=== PATIENT | female | born 1955 | race Caucasian/White ===

== ENCOUNTER 2019-12-29 10:30 | Outpatient (REF) | payer MEDICARE, BC, SELFPAY ==
[2019-12-29 19:35] LABS: HCT 41.5 % (36.0-46.0); HGB 13.6 g/dL (11.2-15.7); MCH 30.4 pg (27.0-33.0); MCHC 32.8 % (32.0-36.0); MCV 92.8 fL (80-95); MPV 12.9 fL (8.0-11.0); Platelet Count 260 10^3/uL (130-400); RBC 4.47 10^6/uL (3.93-5.22); RDW 11.9 % (11.7-14.6); RDW-SD 40.4 fL; WBC 6.08 10^3/uL (4.4-10.8)
[2019-12-29 20:08] LABS: Anion Gap 9.4 mmol/L (3-11); BUN 11 mg/dL (7-18); CO2 26.6 mmol/L (21.0-32.0); CREATININE 0.79 mg/dL (0.55-1.02); Calcium 9.2 mg/dL (8.5-10.1); Calculated LDL 168 mg/dL (<100); Chloride 104 mmol/L (98-107); Cholesterol 260 mg/dL (<200); Glucose 91 mg/dL (74-106); HDL Cholesterol 51 mg/dL (40-60); Potassium 4.4 mmol/L (3.5-5.1); Sodium 140 mmol/L (136-145); TSH (W/Ref FT4) 2.13 uIU/mL (0.36-3.74); Triglyceride 205 mg/dL (<150)
== END 2019-12-29 10:50 ==
LOC: NCHCN 10:30
PROVIDERS: Visit Provider Nurse Practitioner Family
DX: I10 Essential (primary) hypertension (principal); E78.00 Pure hypercholesterolemia, unspecified
CPT/HCPCS: 80048; 80061; 85027; 84443

== ENCOUNTER 2020-03-22 18:36 | Outpatient (REF) | payer MEDICARE, BC, SELFPAY ==
[2020-03-22 19:25] LABS: Calculated LDL 169 mg/dL (<100); Cholesterol 259 mg/dL (<200); HDL Cholesterol 58 mg/dL (40-60); Triglyceride 164 mg/dL (<150)
[2020-03-22 19:54] LABS: Creatine Kinase 190 U/L (26-192)
== END 2020-03-22 18:56 ==
LOC: NCHCN 18:36
PROVIDERS: Visit Provider Nurse Practitioner Family
DX: I10 Essential (primary) hypertension (principal); E78.00 Pure hypercholesterolemia, unspecified; Z15.09 Genetic susceptibility to other malignant neoplasm; Z00.00 Encounter for general adult medical examination without abnormal findings
CPT/HCPCS: 80061; 82550

== ENCOUNTER 2020-11-29 14:38 | Outpatient (REF) | payer MEDICARE, BC, SELFPAY ==
[2020-11-29 19:37] LABS: Calculated LDL 157 mg/dL (<100); Cholesterol 246 mg/dL (<200); HDL Cholesterol 61 mg/dL (40-60); Triglyceride 144 mg/dL (<150)
== END 2020-11-29 14:39 | disposition home or self-care (01) ==
LOC: NCHCN 14:38
PROVIDERS: Visit Provider Nurse Practitioner Family
DX: E78.00 Pure hypercholesterolemia, unspecified (principal)
CPT/HCPCS: 80061

== ENCOUNTER 2021-05-30 18:36 | Outpatient (REF) | payer MEDICARE, BC, SELFPAY ==
[2021-05-30 13:46] LABS: Anion Gap 7.7 mmol/L (3-11); BUN 11 mg/dL (7-18); CO2 29.3 mmol/L (21.0-32.0); CREATININE 0.8 mg/dL (0.55-1.02); Calcium 9.7 mg/dL (8.5-10.1); Calculated LDL 205 mg/dL (<100); Chloride 103 mmol/L (98-107); Cholesterol 300 mg/dL (<200); Glucose 92 mg/dL (74-106); HDL Cholesterol 63 mg/dL (40-60); Potassium 4.3 mmol/L (3.5-5.1); Sodium 140 mmol/L (136-145); Triglyceride 162 mg/dL (<150)
== END 2021-05-30 18:37 | disposition home or self-care (01) ==
LOC: NCHCN 18:36
PROVIDERS: Visit Provider Nurse Practitioner Family
DX: E78.00 Pure hypercholesterolemia, unspecified (principal); I10 Essential (primary) hypertension
CPT/HCPCS: 80048; 80061

== ENCOUNTER 2021-08-21 10:27 | Outpatient (REF) | payer OTHER, MEDICARE, SELFPAY ==
[2021-08-21 12:25] LABS: Calculated LDL 90 mg/dL (<100); Cholesterol 179 mg/dL (<200); HDL Cholesterol 61 mg/dL (40-60); Triglyceride 140 mg/dL (<150)
== END 2021-08-21 10:28 | disposition home or self-care (01) ==
LOC: NCHCN 10:27
PROVIDERS: Visit Provider Nurse Practitioner Family
DX: E78.00 Pure hypercholesterolemia, unspecified (principal)
CPT/HCPCS: 80061

== ENCOUNTER 2021-12-19 18:29 | Outpatient (REF) | payer OTHER, SELFPAY ==
[2021-12-19 15:35] LABS: Calculated LDL 111 mg/dL (<100); Cholesterol 204 mg/dL (<200); HDL Cholesterol 66 mg/dL (40-60); Triglyceride 136 mg/dL (<150)
== END 2021-12-19 18:30 | disposition home or self-care (01) ==
LOC: NCHCN 18:29
PROVIDERS: PCP Nurse Practitioner Family; Visit Provider Nurse Practitioner Family
DX: E78.00 Pure hypercholesterolemia, unspecified (principal)
CPT/HCPCS: 80061

== ENCOUNTER 2022-04-18 15:40 | Outpatient (REF) | payer OTHER, SELFPAY ==
[2022-04-18 19:14] LABS: TSH (W/Ref FT4) 1.22 uIU/mL (0.36-3.74); Vitamin B12 395 pg/mL (193-986)
[2022-04-21 12:00] LABS: Lyme Ab w Rflx to Lyme Confirm Negative (Negative)
[2022-04-23 23:19] LABS: Anaplasma phagocytophilum Negative (Negative); B. miyamotoi PCR Negative (Negative); Babesia divergens/MO-1 Negative (Negative); Babesia duncani Negative (Negative); Babesia microti Negative (Negative); Ehrlichia chaffeensis Negative (Negative); Ehrlichia ewingii/canis Negative (Negative); Ehrlichia muris eauclairensis Negative (Negative)
== END 2022-04-18 15:41 | disposition home or self-care (01) ==
LOC: NCHCN 15:40
PROVIDERS: PCP Nurse Practitioner Family; Visit Provider Nurse Practitioner Family
DX: R07.89 Other chest pain (principal); R42 Dizziness and giddiness; L30.4 Erythema intertrigo
CPT/HCPCS: 87798; 82607; 84443; 86618

== ENCOUNTER 2022-06-19 14:19 | Outpatient (REF) | payer OTHER, SELFPAY ==
[2022-06-19 15:29] LABS: HCT 39.9 % (36.0-46.0); HGB 13.3 g/dL (11.2-15.7); MCH 30.5 pg (27.0-33.0); MCHC 33.3 % (32.0-36.0); MCV 92 fL (80-95); MPV 11.8 fL (8.0-11.0); Platelet Count 271 10^3/uL (130-400); RBC 4.36 10^6/uL (3.93-5.22); RDW-SD 40.4 fL; WBC 6.42 10^3/uL (4.4-10.8)
[2022-06-19 15:43] LABS: Anion Gap 7.6 mmol/L (3-11); BUN 9 mg/dL (7-18); CO2 28.4 mmol/L (21.0-32.0); CREATININE 0.7 mg/dL (0.55-1.02); Calcium 9.2 mg/dL (8.5-10.1); Chloride 103 mmol/L (98-107); Estimated GFR 94.15 (mL/min/1.73m2); Glucose 92 mg/dL (74-106); Potassium 4.1 mmol/L (3.5-5.1); Sodium 139 mmol/L (136-145)
[2022-06-19 16:18] LABS: Vitamin D 25 Total 49.8 ng/mL (30-100)
== END 2022-06-19 14:20 | disposition home or self-care (01) ==
LOC: NCHCN 14:19
PROVIDERS: PCP Nurse Practitioner Family; Visit Provider Nurse Practitioner Family
DX: I10 Essential (primary) hypertension (principal); R53.83 Other fatigue; R42 Dizziness and giddiness
CPT/HCPCS: 80048; 82306; 85027

== ENCOUNTER 2022-12-26 17:52 | Outpatient (REF) | payer OTHER, SELFPAY ==
[2022-12-26 19:11] LABS: ALT 42 U/L (14-59); AST 26 U/L (15-37); Albumin 4.4 g/dL (3.4-5.0); Alkaline Phosphatase 76 U/L (46-116); Anion Gap 7.8 mmol/L (3-11); BUN 7 mg/dL (7-18); Bilirubin, Total 0.7 mg/dL (0.2-1.0); CO2 30.2 mmol/L (21.0-32.0); CREATININE 0.7 mg/dL (0.55-1.02); Calcium 9.2 mg/dL (8.5-10.1); Calculated LDL 123 mg/dL (<100); Chloride 102 mmol/L (98-107); Cholesterol 231 mg/dL (<200); Estimated GFR 94.15 (mL/min/1.73m2); Glucose 99 mg/dL (74-106); HDL Cholesterol 61 mg/dL (40-60); Potassium 3.8 mmol/L (3.5-5.1); Sodium 140 mmol/L (136-145); Total Protein 8.1 g/dL (6.4-8.2); Triglyceride 238 mg/dL (<150)
[2022-12-26 19:31] LABS: Vitamin D 25 Total 44.6 ng/mL (30-100)
== END 2022-12-26 17:53 | disposition home or self-care (01) ==
LOC: NCHCN 17:52
PROVIDERS: PCP Nurse Practitioner Family; Visit Provider Nurse Practitioner Family
DX: Z00.00 Encounter for general adult medical examination without abnormal findings (principal); I10 Essential (primary) hypertension; E78.00 Pure hypercholesterolemia, unspecified
CPT/HCPCS: 80053; 80061; 82306

== ENCOUNTER 2023-12-31 11:52 | Outpatient (REF) | payer OTHER, SELFPAY ==
[2023-12-31 15:43] LABS: ALT 37 U/L (14-59); AST 26 U/L (15-37); Albumin 4.4 g/dL (3.4-5.0); Alkaline Phosphatase 72 U/L (46-116); Anion Gap 8.3 mmol/L (3-11); BUN 9 mg/dL (7-18); Bilirubin, Total 0.54 mg/dL (0.2-1.0); CO2 28.7 mmol/L (21.0-32.0); CREATININE 0.8 mg/dL (0.55-1.02); Calcium 8.8 mg/dL (8.5-10.1); Chloride 105 mmol/L (98-107); Estimated GFR 79.71 (mL/min/1.73m2); Glucose 107 mg/dL (74-106); Potassium 4.5 mmol/L (3.5-5.1); Sodium 142 mmol/L (136-145); Total Protein 7.8 g/dL (6.4-8.2)
[2023-12-31 16:02] LABS: Hemoglobin A1C 5.9 % (<5.7)
[2023-12-31 20:54] LABS: Creatine Kinase 129 U/L (26-192)
== END 2023-12-31 11:53 | disposition home or self-care (01) ==
LOC: NCHCN 11:52
PROVIDERS: PCP Nurse Practitioner Family; Visit Provider Nurse Practitioner Family
DX: I10 Essential (primary) hypertension (principal); R73.9 Hyperglycemia, unspecified; M79.605 Pain in left leg
CPT/HCPCS: 80053; 82550; 83036; 83735

== ENCOUNTER 2025-01-05 18:58 | Outpatient (REF) | payer MEDICARE, SELFPAY ==
[2025-01-05 16:04] LABS: ALT 31 U/L (14-59); AST 18 U/L (15-37); Albumin 4.4 g/dL (3.4-5.0); Alkaline Phosphatase 74 U/L (46-116); Anion Gap 6.0 mmol/L (3-11); BUN 7 mg/dL (7-18); Bilirubin, Total 0.8 mg/dL (0.2-1.0); CO2 30.0 mmol/L (21.0-32.0); Calcium 9.5 mg/dL (8.5-10.1); Calculated LDL 76 mg/dL (<100); Chloride 103 mmol/L (98-107); Cholesterol 168 mg/dL (<200); Estimated GFR 96.50 (mL/min/1.73m2); Glucose 93 mg/dL (74-106); HDL Cholesterol 62 mg/dL (>or=50); Potassium 4.4 mmol/L (3.5-5.1); Sodium 139 mmol/L (136-145); Total Protein 7.6 g/dL (6.4-8.2); Triglyceride 153 mg/dL (<150)
[2025-01-05 16:30] LABS: Hemoglobin A1C 5.6 % (<5.7)
== END 2025-01-05 18:59 | disposition home or self-care (01) ==
LOC: NCHCN 18:58
PROVIDERS: PCP Nurse Practitioner Family; Visit Provider Nurse Practitioner Family
DX: E78.00 Pure hypercholesterolemia, unspecified (principal); R73.03 Prediabetes
CPT/HCPCS: 80053; 80061; 83036